=== PATIENT | female | born 1975 | race Caucasian/White ===

== ENCOUNTER 2018-02-25 19:51 | Emergency (ER) | payer OTHER ==
[~2018-02-25] VITALS: Ht 162.6 cm; Wt 79.4 kg
[2018-02-25 19:57] VITALS: BP 148/98
--- NOTE | 2018-02-25 20:04 | NUR ---
PT AMBULATED TO ER BED 08
--- NOTE | 2018-02-25 20:08 | NUR ---
PATIENT PRESENTS TO ED WITH LEFT EYEBROW LACERATION 45 MINUTES PRIOR. PATIENT STATES SHE QWAS DOING LAUNDRY AND SLIPPED ON A DRYER SHEET AND HIT HER FACE ON A DOORKNOB. PATIENT DENIES LOC. PT DENIES N/V/D; SKIN IS PINK/WARM/DRY; AAOX4 WITH EVEN AND STEADY GAIT; LUNGS CLEAR BL; HR EVEN AND REGULAR; PT DENIES ANY FEVER, CP, SOB, OR COUGH AT THIS TIME; PATIENT STATES PAIN OF 6/10 AT THIS TIME; VSS; PATIENT POSITIONED FOR COMFORT; HOB ELEVATED; BEDRAILS UP X1; BED DOWN. ER MD MADE AWARE OF PT STATUS.
[2018-02-25] MEDS ORDERED: ACETAMINOPHEN 325 MG TAB PO ONE (20:20)
[2018-02-25] MEDS ORDERED: BACITRACIN OINT 500 UNITS/GM PKT TP ONE (21:02)
[2018-02-25 21:10] VITALS: BP 148/98
--- NOTE | 2018-02-25 21:10 | NUR ---
Patient discharged with v/s stable and bleeding controlled. Written and verbal after care instructions given and explained. Patient alert, oriented and verbalized understanding of instructions. Ambulatory with steady gait. All questions addressed prior to discharge. ID band removed. Patient advised to follow up with PMD. Rx of TYLENOL given. Patient educated on indication of medication including possible reaction and side effects. Opportunity to ask questions provided and answered.
== END 2018-02-25 21:10 | disposition home or self-care (01) ==
LOC: MED 19:51
DX: S01.112A Laceration without foreign body of left eyelid and periocular area, initial encounter (principal); R03.0 Elevated blood-pressure reading, without diagnosis of hypertension; W01.190A Fall on same level from slipping, tripping and stumbling with subsequent striking against furniture, initial encounter; Y93.89 Activity, other specified; Y92.89 Other specified places as the place of occurrence of the external cause; Y99.8 Other external cause status
CPT/HCPCS: 90471; 90715; 99283

== ENCOUNTER 2018-05-16 08:34 | Emergency (ER) | payer OTHER ==
[~2018-05-16] VITALS: Ht 162.6 cm; Wt 79.8 kg
[2018-05-16 08:49] VITALS: BP 129/76
--- NOTE | 2018-05-16 09:00 | NUR ---
42Y/F BIB SELF C/O MARI EYES PAIN. PT STATES SHE HAS EYE PAIN & REDNESS X 3 MONTHS; WENT TO PCP ;GOT NASAL SRAY, EYE DROP & PILL MEDS FOR ALLERGY, BUT MEDS DON'T HELP. TOOK ADVIL 1 HOUR SAND DIGGER.BED DOWN; BEDRAILS UP X 1; ER MD AWARE AND NOTIFIED OF PT STATUS. MED HX:HYPOTHYROID MED: CAN'T REMEMBER.
--- NOTE | 2018-05-16 09:16 | NUR ---
Patient being evaluated by physician at bedside.
[2018-05-16 09:31] VITALS: BP 131/78
--- NOTE | 2018-05-16 09:31 | NUR ---
Patient discharged with v/s stable. Written and verbal after care instructions given and explained. Patient verbalized understanding. Ambulatory with steady gait. All questions addressed prior to discharge. Advised to follow up with PMD.
== END 2018-05-16 09:31 | disposition home or self-care (01) ==
LOC: MED 08:34
DX: H10.9 Unspecified conjunctivitis (principal); E03.9 Hypothyroidism, unspecified
CPT/HCPCS: 99283

== ENCOUNTER 2024-03-01 20:59 | Emergency (ER) | payer OTHER ==
[~2024-03-01] VITALS: Ht 162.6 cm; Wt 83.0 kg
[2024-03-01 21:01] VITALS: BP 149/79; PULSE 66; RESP 16; TEMP 97.4; O2SAT 100
[2024-03-01 21:28] VITALS: O2SAT 100
[2024-03-01 21:35] LABS: BILIRUBIN,URINE NEGATIVE (NEGATIVE); BLOOD, URINE NEGATIVE (NEGATIVE); COLOR,URINE YELLOW (YELLOW); LEUKOCYTE ESTERASE ,URINE 1+ (NEGATIVE); NITRITE, URINE NEGATIVE (NEGATIVE); PROTEIN,URINE NEGATIVE (NEGATIVE); UGLUCOSE NEGATIVE (NEGATIVE); UROBILINOGEN,URINE 0.2 EU/dL (0.2 - 1)
[2024-03-01 21:42] LABS: APPEARANCE,URINE SLIGHTLY HAZY (CLEAR)
[2024-03-01 21:45] LABS: RBC,URINE 0 /HPF (0-5); WBC,URINE 0-5 /HPF (0-5)
[2024-03-01 21:46] LABS: BACTERIA,URINE 1+ /HPF (None Seen); MUCUS,URINE None Seen /LPF (None Seen); SQUAMOUS EPITHELIAL CELL,UR 0-3 (FEW) /LPF (0-3 (FEW))
[2024-03-01] MEDS: KETOROLAC 30 MG/ML VIAL IM ONE (22:04)
[2024-03-01 22:09] LABS: BASOPHILS % (AUTO) 0.6 % (0.0-2.0); EOSINOPHILS # (AUTO) 0.2 K/uL (0-0.4); EOSINOPHILS % (AUTO) 2.9 % (0.0-4.0); HEMATOCRIT 34.8 % (36-48); HEMOGLOBIN 11.5 g/dL (12.0-16.0); LYMPHOCYTES # (AUTO) 2.6 K/uL (2.5-16.5); LYMPHOCYTES % (AUTO) 31.6 % (20.5-51.1); MEAN CORPUSCULAR HEMOGLOBIN 27 pg (27-31); MEAN CORPUSCULAR HGB CONC 33 g/dL (33-37); MEAN CORPUSCULAR VOLUME 82.3 fL (80-94); MONOCYTES # (AUTO) 0.5 K/uL (0.8-1.0); MONOCYTES % (AUTO) 5.8 % (1.7-9.3); NEUTROPHILS # (AUTO) 4.9 K/uL (1.8-7.7); NEUTROPHILS % (AUTO) 59.1 % (42.2-75.2); PLATELET COUNT (AUTO) 244 K/uL (140-450); RED BLOOD CELL COUNT(AUTO) 4.23 MIL/uL (4.20-5.40); RED CELL DISTRIBUTION WIDTH 15.5 % (11.6-13.7); WHITE BLOOD COUNT (AUTO) 8.3 K/uL (4.8-10.8)
[2024-03-01 22:22] LABS: ANION GAP 9.5 (8-16); CALCIUM 9.3 mg/dL (8.5-10.1); CARBON DIOXIDE 29.7 mmol/L (21-32); CREATININE 0.8 mg/dL (0.6-1.3); POTASSIUM 4.2 mmol/L (3.5-5.1)
[2024-03-01 22:27] LABS: ALBUMIN 3.5 g/dL (3.4-5.0); BILIRUBIN,DIRECT 0.1 mg/dL (0.0-0.3); TOTAL BILIRUBIN 0.3 mg/dL (0.0-1.0); TOTAL PROTEIN, SERUM 7.2 g/dL (6.4-8.2)
[2024-03-01] MEDS: IBUPROFEN 600 MG TAB PO ONE (22:29)
[2024-03-01 22:40] VITALS: BP 141/80; PULSE 68; RESP 16; TEMP 97.4; O2SAT 100
[2024-03-01] MEDS ORDERED: CEPH-588 PO (22:54)
[2024-03-01 23:00] VITALS: O2SAT 100
== END 2024-03-01 23:06 | disposition home or self-care (01) ==
LOC: MED 20:59
DX: N30.00 Acute cystitis without hematuria (principal); M54.6 Pain in thoracic spine; E03.9 Hypothyroidism, unspecified; Z79.899 Other long term (current) drug therapy
CPT/HCPCS: 36415; 71045; 80048; 80076; 81001; 81025; 83690; 85025; 87086; 99284; J1885; Q0092